=== PATIENT | female | born 1985 | race African-American/Black ===

== ENCOUNTER 2017-10-05 20:11 | Emergency (ER) | payer OTHER ==
[~2017-10-05] VITALS: Ht 167.6 cm; Wt 74.6 kg
[2017-10-05 20:17] VITALS: Ht 167.6 cm; Wt 74.6 kg
[2017-10-05 22:09] LABS: BASOPHILS % 0.5 % (0.0-2.0); EOSINOPHILS # 0.2 10^3/ul (0.0-0.5); EOSINOPHILS % 2.1 % (0.0-7.0); HEMATOCRIT 36.4 % (37.0-47.0); HEMOGLOBIN 12.8 g/dl (12.0-16.0); LYMPHOCYTES % 33.9 % (15.0-51.0); MEAN CORPUSCULAR HEMOGLOBIN 29.2 pg (29.0-33.0); MEAN CORPUSCULAR HGB CONC 35.2 g/dl (32.0-37.0); MEAN CORPUSCULAR VOLUME 82.9 fl (82.0-101.0); MEAN PLATELET VOLUME 10.6 fl (7.4-10.4); MONOCYTE # 0.4 10^3/ul (0.3-0.9); MONOCYTES % 4.9 % (0.0-11.0); NEUTROPHIL # 5.1 10^3/ul (1.6-7.5); NEUTROPHILS % 58.1 % (39.0-77.0); PLATELET COUNT 336 10^3/UL (140-415); RED BLOOD COUNT 4.39 10^6/ul (4.20-5.40); RED CELL DISTRIBUTION WIDTH 11.8 % (11.5-14.5); WHITE BLOOD COUNT 8.8 10^3/ul (4.8-10.8)
[2017-10-05 22:14] LABS: ADD UMIC NO; UR ASCORBIC ACID NEGATIVE (NEGATIVE); UR BILIRUBIN (Dip) NEGATIVE (NEGATIVE); UR BLOOD (Dip) NEGATIVE (NEGATIVE); UR CLARITY CLEAR (CLEAR); UR COLOR YELLOW (YELLOW); UR GLUCOSE (Dip) 1+ mg/dL (NEGATIVE); UR KETONES (Dip) NEGATIVE (NEGATIVE); UR LEUKOCYTE ESTERASE (Dip) NEGATIVE Leu/ul (NEGATIVE); UR NITRITE (Dip) NEGATIVE (NEGATIVE); UR SPECIFIC GRAVITY (Dip) 1.023 (1.003-1.030); UR TOTAL PROTEIN (Dip) NEGATIVE (NEGATIVE); UR UROBILINOGEN (Dip) NEGATIVE (NEGATIVE)
--- NOTE | 2017-10-05 22:52 | RADRPT ---
PROCEDURE: US OB. CLINICAL INDICATION: Pelvic pain. . LAST MENSTRUAL PERIOD: 08/26/2017 TECHNIQUE: Transabdominal and transvaginal views of the pelvis are available for review. COMPARISON: No prior studies are available for comparison. FINDINGS: [place]-rump length:3 mm heart rate:113 Ultrasound estimated gestational age:5 weeks and 6 days Small subchorionic hemorrhage. Right ovarian corpus luteum cyst. Left ovary not visualized. No other ovarian or adnexal mass lesion is seen. There is no free fluid. IMPRESSION: Single live intrauterine with an estimated gestational age of 5 weeks and 6 days. RPTAT:AAJJ Physician Tamica Date Time Electronically viewed and signed by Physician Tamica on 10/05/2017 22:52 /
--- NOTE | 2017-10-06 00:13 | ERD ---
ER Documentation Chief Complaint Chief Complaint 8 wks , pelvic pain x 1 week HPI 32-year-old female complaining of pelvic pain. patient is . Denies vaginal bleeding. States that the pain is in the pelvic region and it alternates between right and left lower quadrants. Patient A2. Last normal menstrual periods August 26. Patient is seen by Dr. Barbara PERDOMO All systems reviewed and are negative except as per history of present illness. Allergies Allergies: Coded Allergies: No Known Allergy (Unverified , 06/29/16) PMhx/Soc History of Surgery: No Anesthesia Reaction: No Hx Neurological Disorder: No Hx Respiratory Disorders: No Hx Cardiac Disorders: No Hx Psychiatric Problems: No Hx Miscellaneous Medical Probl: No Hx Alcohol Use: No Hx Substance Use: No Hx Tobacco Use: No Smoking Status: Never smoker Physical Exam Vitals Vital Signs Date Time Temp Pulse Resp B/P Pulse Ox O2 Delivery O2 Flow Rate FiO2 10/05/17 20:17 98.3 78 20 139/68 99 Physical Exam GENERAL: The patient is well-appearing, well-nourished, in no acute distress CHEST: Clear to auscultation bilaterally. There are no rales, wheezes or rhonchi. HEART: Regular rate and rhythm. No murmurs, clicks, rubs or gallops. No S3 or S4. ABDOMEN: Normoactive bowel sounds. Nondistended. Mild tenderness palpation in bilateral lower pelvic region. BACK: No midline or flank tenderness. Result Diagram: 10/05/17 2150 Results 24 hrs Laboratory Tests Test 10/05/17 21:50 White Blood Count 8.810^3/ul Red Blood Count 4.3910^6/ul Hemoglobin 12.8g/dl Hematocrit 36.4% Mean Corpuscular Volume 82.9fl Mean Corpuscular Hemoglobin 29.2pg Mean Corpuscular Hemoglobin Concent 35.2g/dl Red Cell Distribution Width 11.8% Platelet Count 32077^3/UL Mean Platelet Volume 10.6fl Neutrophils % 58.1% Lymphocytes % 33.9% Monocytes % 4.9% Eosinophils % 2.1% Basophils % 0.5% Nucleated Red Blood Cells % 0.0/100WBC Neutrophils # 5.110^3/ul Lymphocytes # 3.010^3/ul Monocytes # 0.410^3/ul Eosinophils # 0.210^3/ul Basophils # 0.010^3/ul Nucleated Red Blood Cells # 0.010^3/ul Urine Color YELLOW Urine Clarity CLEAR Urine pH 7.0 Urine Specific [place] 1.023 Urine Ketones NEGATIVEmg/dL Urine Nitrite NEGATIVEmg/dL Urine Bilirubin NEGATIVEmg/dL Urine Urobilinogen NEGATIVEmg/dL Urine Leukocyte Esterase NEGATIVELeu/ul Urine Hemoglobin NEGATIVEmg/dL Urine Glucose 1+mg/dL Urine Total Protein NEGATIVEmg/dl Beta HCG, Quantitative 54943.0mIU/ml Procedures/MDM DIAGNOSTIC IMAGING REPORT Patient: YUMIKO COVINGTON : 1985 Age: 32 Sex: F MR #: [id number] DOS: 10/05/17 2134 Ordering MD: GUY MARTI PA-C Location: [facility] Room/Bed: PROCEDURE: US OB. CLINICAL INDICATION: Pelvic pain. . LAST MENSTRUAL PERIOD: 08/26/2017 TECHNIQUE: Transabdominal and transvaginal views of the pelvis are available for review. COMPARISON: No prior studies are available for comparison. FINDINGS: [place]-rump length: 3 mm heart rate: 113 Ultrasound estimated gestational age: 5 weeks and 6 days Small subchorionic hemorrhage. Right ovarian corpus luteum cyst. Left ovary not visualized. No other ovarian or adnexal mass lesion is seen. There is no free fluid. IMPRESSION: Single live intrauterine with an estimated gestational age of 5 weeks and 6 days. MDM: 32-year-old female complaining of pelvic pain. Patient's ultrasound is within normal limits with a normal IUP. Patient's blood work is within normal limits and no signs of urinary tract infection on urinalysis. Patient's pain is likely associated with pelvic pain during . Patient is recommended to follow-up with [facility] within 1 to days for close evaluation. A low suspicion for other pelvic emergencies or abdominal abnormalities at this time. Patient is discharged with strict ER precautions and recommended to follow-up with primary care within 1-2 days for close evaluation. All questions answered at discharge. Departure Diagnosis: Primary Impression: Condition: Stable Patient Instructions: , Established, Normal Symptoms Additional Instructions: FOLLOW UP WITH YOUR PRIMARY CARE PHYSICIAN TOMORROW.Return to this facility if you are not improving as expected. INES MARTI PA-C Oct 06, 2017 00:13
== END 2017-10-05 23:45 | disposition home or self-care (01) ==
LOC: FTE 20:11
DX: O26.891 Other specified pregnancy related conditions, first trimester (principal); R10.2 Pelvic and perineal pain; Z3A.01 Less than 8 weeks gestation of pregnancy
CPT/HCPCS: 36415; 76801; 76817; 81003; 84702; 85025; 86900; 86901; Z7502

== ENCOUNTER 2017-12-21 10:56 | Emergency (ER) | END 2017-12-21 14:17 | disposition home or self-care (01) ==